=== PATIENT | female | born 1955 | race Asian ===

== ENCOUNTER 2019-10-09 21:28 | Emergency (ER) | payer MEDICAID, OTHER ==
[~2019-10-09] VITALS: Ht 152.4 cm; Wt 64.5 kg
[~2019-10-09 21:28] MED LIST: LIDOcaine 1% W/epiNEPHrine 1:200,000 10ml vial ONE
[2019-10-09 21:44] VITALS: BP 120/75
[2019-10-09] MEDS ORDERED: TETanus/Pertussis (Acell)/Diphther VAC/PF (Tdap-Adult) 0.5ml syringe IMVAC ONE (23:45)
== END 2019-10-09 23:58 | disposition home or self-care (01) ==
LOC: ER 21:29
DX: S61.412A Laceration without foreign body of left hand, initial encounter (principal); I10 Essential (primary) hypertension; J45.909 Unspecified asthma, uncomplicated; K21.9 Gastro-esophageal reflux disease without esophagitis; E11.9 Type 2 diabetes mellitus without complications; W26.0XXA Contact with knife, initial encounter; Y93.89 Activity, other specified; Y92.090 Kitchen in other non-institutional residence as the place of occurrence of the external cause; Y99.9 Unspecified external cause status
CPT/HCPCS: 12002; 90471; 90715; 99283

== ENCOUNTER 2019-10-20 10:20 | Emergency (ER) | payer MEDICAID ==
[~2019-10-20] VITALS: Ht 152.4 cm; Wt 63.6 kg
[2019-10-20 10:23] VITALS: BP 121/74
== END 2019-10-20 10:46 | disposition home or self-care (01) ==
LOC: ER 10:20
DX: S61.412D Laceration without foreign body of left hand, subsequent encounter (principal); I10 Essential (primary) hypertension; J45.909 Unspecified asthma, uncomplicated; K21.9 Gastro-esophageal reflux disease without esophagitis; E11.9 Type 2 diabetes mellitus without complications; W26.0XXD Contact with knife, subsequent encounter
CPT/HCPCS: 99281